=== PATIENT | male | born 1945 | race Caucasian/White ===

== ENCOUNTER → 2018-05-03 09:06 | Outpatient (CLI) | payer MEDICARE ==
--- NOTE | ~2018-05-03 | ST ---
PATIENT:ABIGAIL WALKER JR MEDICAL RECORD: [id number] SEX: M LOCATION:[facility] ORDER #: ADMISSION DATE: 05/03/18 AGE OF PATIENT: 72 REFERRING PHYSICIAN: INTERPRETING PHYSICIAN: FREDY JOHNSTON MD DATE OF SERVICE: 05/03/2018 Nuclear Stress Test INDICATIONS: Angina, coronary artery disease, hypertension, shortness of breath, it was pharmacologic. The patient was exercised under standard LexiScan protocol with 33 mCi of sestamibi injected at peak stress, 11 mCi were used previously for rest images. FINDINGS: Gated SPECT reveals a preserved ejection fraction at 59% with decreased thickening and brightening throughout the inferior segments. SPECT imaging: Cardiolite was used as myocardial perfusion agent. There is a fixed perfusion defect inferiorly compatible with previously inferior myocardial infarction. There is no evidence of reversibility, in fact the defect shows reversed re-distribution and improvement with stress. OVERALL IMPRESSION: This is an abnormal nuclear stress test showing a previous inferior myocardial infarction, no ongoing ischemic burden for ejection fraction preserved at 59%. Continue medical management of the coronary artery disease and cardiac risk factors. TRANSINT:[id number] Voice Confirmation ID: [id number] DOCUMENT ID: [id number] FREDY JOHNSTON MD at 1025 CC: COLE EL V [id number] DICTATION DATE: 05/03/181826 TREASURY AGENT: 05/04/18 0805 [facility] CLI 05/03/18 [place] [id number] [place] [address]
== END | disposition home or self-care (01) ==
LOC: D.HCCARDIO 04-26 12:00
DX: I25.10 Atherosclerotic heart disease of native coronary artery without angina pectoris (principal)

== ENCOUNTER → 2018-10-17 08:33 | Outpatient (CLI) | payer MEDICARE ==
--- NOTE | 2018-10-23 13:26 | EC ---
PATIENT:ABIGAIL WALKER JR DATE OF SERVICE: 10/17/18 SEX: M MEDICAL RECORD: [id number] DATE OF : 43 LOCATION:[facility] AGE OF PATIENT: 73 ADMISSION DATE: 10/17/18 REFERRING PHYSICIAN: INTERPRETING PHYSICIAN: COLE SERRA MD ECHOCARDIOGRAM REPORT ECHO CHARGES 4 ECHO COMPLETE Date: 10/17/18 CLINICAL DIAGNOSIS: CAD/AORTIC INSUFF HX OF CABG/HTN ECHOCARDIOGRAPHIC MEASUREMENTS (adult normal given) AC root (d.<3.7cm) 3.6 cm LV Septum d (<1.2 cm> 1.5 cm Valve Excursion 1.7 cm LV Septum (systole) 1.6 cm Left Atria (s.<4.0cm> 4.4 cm LVPW d(<1.2cm) 1.4 cm RV (d.<2.3cm) 4.7 cm LVPW (sytole) 2.0 cm LV diastole(<5.6CM) 5.7 cm MV E-F(>70mm/sec) cm LV systole 4.1 cm LVOT Diameter 2.0 cm MV exc.(>10mm) cm Est.ejection fraction (50-75%) % DOPPLER: LVIT cm/sec A 88.0 cm/sec E 71.0 cm/sec LA cm/sec RVSP 34 mmHg LVOT 96 cm/sec AOP1/2T 560 m/s Asc. Ao 135 cm/sec RVOT 48 cm/sec RA cm/sec PA 123 cm/sec AV Gradient Peak 7.32 mmHg AV Mean 3.75 mmHg AV Area 2.5 cm MV Gradient Peak mmHg MV Mean mmHg MV Area cm COMMENTS: Float Tender: Steven SANTIAGO Podiatrist: 3 Dr. Peña TAPE# PACS Pericardial Effusion N DATE OF SERVICE: 10/17/2018 Adequate 2-D, color-flow and spectral Doppler, and M-mode. LVH is present. LV internal dimensions are normal. Wall motion is normal. EF is 55%. Aortic valve sclerosis without stenosis by Doppler interrogation. There is mild AI by color-flow imaging. Left atrium is dilated at 4.4 cm. Mitral valve shows no prolapse. Mild MR. Right-sided chambers are grossly normal. Trace TR. ECHOCARDIOGRAM REPORT [id number] ABIGAIL WALKER JR TRANSINT:[id number] Voice Confirmation ID: [id number] DOCUMENT ID: [id number] COLE SERRA MD at 1326 CC: [id number] DICTATION DATE: 10/18/18 1309 BINGO CASHIER: 10/18/18 1441 [facility] CLI 10/17/18 [place] [id number] [place] [id number]
== END | disposition home or self-care (01) ==
LOC: D.HCCARDIO 08:33
PROVIDERS: ATTEND Internal Medicine Interventional Cardiology
DX: I25.10 Atherosclerotic heart disease of native coronary artery without angina pectoris (principal)

== ENCOUNTER 2018-12-09 12:24 | Emergency (ER) | payer MEDICARE ==
[~2018-12-09] VITALS: Ht 177.8 cm; Wt 95.5 kg
[2018-12-09 12:28] VITALS: Ht 177.8 cm; Wt 95.5 kg
[2018-12-09] MEDS ORDERED: DONEPEZIL HCL10 MG PO (12:30)
[2018-12-09] MEDS ORDERED: ASPIRIN81 MG (12:30)
[2018-12-09] MEDS ORDERED: TOPROL XL50 MG PO (12:30)
[2018-12-09] MEDS ORDERED: LIPITOR80 MG PO (12:30)
[2018-12-09] MEDS ORDERED: OMEPRAZOLE20 M1 PO (12:30)
[2018-12-09] MEDS ORDERED: HYDROCHLOROTH12.5 M1 PO (12:31)
[2018-12-09] MEDS ORDERED: COZAAR100 MG PO (12:31)
[2018-12-09] MEDS ORDERED: CELEXA20 MG PO (12:31)
[2018-12-09] MEDS ORDERED: GLUCOSAMINE HC500 MG PO (12:32)
[2018-12-09] MEDS ORDERED: VITAMIN B-121000 MCG PO (12:35)
[2018-12-09] MEDS ORDERED: VITAMIN D31000 UNIT PO (12:35)
[2018-12-09] MEDS ORDERED: OS-CAL500 MG (12:35)
[2018-12-09] MEDS ORDERED: MAGNESIUM (12:36)
[2018-12-09] MEDS ORDERED: KEFLEX500 MG PO (13:38)
[2018-12-09] MEDS ORDERED: ULTRAM50 MG PO (13:42)
[2018-12-09 13:53] VITALS: BP 135/91
== END 2018-12-09 13:53 | disposition home or self-care (01) ==
LOC: D.ER 12:24
DX: S61.211A Laceration without foreign body of left index finger without damage to nail, initial encounter (principal); W26.8XXA Contact with other sharp object(s), not elsewhere classified, initial encounter